=== PATIENT | female | born 1930 | race American Indian/Alaskan Native ===

== ENCOUNTER 2019-01-23 08:25 | Emergency (ER) | payer MEDICARE ==
[2019-01-23] MEDS ORDERED: NACL 0.9% 1000 ML 1,000 ML IV ONE ×2 (09:08→15:01)
[2019-01-23 09:45] LABS: Basophils % (Auto) 0.2 % (0.0-1.8); Eosinophils % (Auto) 0.3 % (0.0-4.3); Hematocrit 31.6 % (30.3-42.9); Hemoglobin 10.3 gm/dl (10.1-14.3); Lymphocytes # (Auto) 0.7 K/mm3 (1.2-5.4); Mean Corpuscular HGB Conc 33 % (30-34); Mean Corpuscular Volume 88 fl (79-97); Monocytes # (Auto) 0.5 K/mm3 (0.0-0.8); Monocytes % (Auto) 9.2 % (0.0-7.3); Platelet Count 235 K/mm3 (140-440); Red Cell Distribution Width 14.9 % (13.2-15.2)
[2019-01-23 09:55] LABS: INR 1.08 (0.87-1.13); Partial Thromboplastin Time 26.3 Sec. (24.2-36.6)
[2019-01-23 10:10] LABS: Alanine Aminotransferase 44 units/L (7-56); Albumin 3.7 g/dL (3.9-5); BUN/Creatinine Ratio 24; Bilirubin,Direct 0.4 mg/dL (0-0.2); Blood Urea Nitrogen 22 mg/dL (7-17); Hemolysis Index 3
--- NOTE | 2019-01-23 10:16 | Emergency Department Report ---
ED General Adult HPI - General Chief complaint: Abdominal Pain Stated complaint: DIARRHEA Time Seen by Provider: 01/23/19 09:07 Source: EMS Mode of arrival: Stretcher Limitations: No Limitations - History of Present Illness Initial comments: This is an 88-year-old female who recently moved to this area from [facility]. Her son states that she went to the doctor 2 weeks ago for routine care. He reports that she has been "going to the bathroom every 5 minutes". He cannot specifically describe to me what has been occurring in the bathroom. He states he thinks she is having "problems with her hemorrhoids". The nurse informs me the patient is having non-bloody diarrhea. The patient herself is able to answer simple questions. She is not able to provide self care I don't think though. She denies pain. He states his been no vomiting fever or chills. -: days(s) Associated Symptoms: denies other symptoms Treatments Prior to Arrival: none - Related Data Previous Rx's Medication Instructions Recorded Last Taken Type Sulfamethoxazole/Trimethoprim 1 each PO BID #10 tablet 01/23/19 Unknown Rx [Bactrim 400-80 mg Tablet] Allergies Allergy/AdvReac Type Severity Reaction Status Date / Time No Known Allergies Allergy Verified 01/23/19 08:56 ED Review of Systems ROS: Stated complaint: DIARRHEA Other details as noted in HPI Constitutional: denies: chills, fever Eyes: denies: eye pain, eye discharge, vision change ENT: denies: ear pain, throat pain Respiratory: denies: cough, shortness of breath, wheezing Cardiovascular: denies: chest pain, palpitations Endocrine: no symptoms reported Gastrointestinal: diarrhea. denies: abdominal pain, nausea Genitourinary: denies: urgency, dysuria, discharge Musculoskeletal: denies: back pain, joint swelling, arthralgia Skin: denies: rash, lesions Neurological: denies: headache, weakness, paresthesias Psychiatric: denies: anxiety, depression Hematological/Lymphatic: denies: easy bleeding, easy bruising ED Past Medical Hx - Past Medical History Previous Medical History?: Yes Hx Hypertension: Yes - Surgical History Past Surgical History?: No - Social History Smoking Status: Unknown if ever smoked Substance Use Type: None - Medications Home Medications: Home Medications Medication Instructions Recorded Confirmed Last Taken Type Sulfamethoxazole/Trimethoprim 1 each PO BID #10 tablet 01/23/19 Unknown Rx [Bactrim 400-80 mg Tablet] ED Physical Exam - General Limitations: No Limitations General appearance: alert, in no apparent distress - Head Head exam: Present: atraumatic, normocephalic - Eye Eye exam: Present: normal appearance. Absent: scleral icterus - ENT ENT exam: Present: mucous membranes moist - Neck Neck exam: Present: normal inspection - Respiratory Respiratory exam: Present: normal lung sounds bilaterally. Absent: respiratory distress - Cardiovascular Cardiovascular Exam: Present: regular rate, normal rhythm. Absent: systolic murmur, diastolic murmur, rubs, gallop - GI/Abdominal GI/Abdominal exam: Present: soft, normal bowel sounds. Absent: distended, tenderness, guarding, rebound, rigid - Extremities Exam Extremities exam: Present: normal inspection - Back Exam Back exam: Present: normal inspection - Neurological Exam Neurological exam: Present: alert, oriented X3, CN II-XII intact. Absent: motor sensory deficit - Psychiatric Psychiatric exam: Present: normal affect, normal mood - Skin Skin exam: Present: warm, dry, intact, normal color. Absent: rash ED Course Vital Signs 01/23/19 01/23/19 01/23/19 08:30 11:44 13:38 Temperature 98.8 F Pulse Rate 82 72 Respiratory 14 12 14 Rate Blood Pressure 148/56 Blood Pressure 144/58 142/68 [Left] O2 Sat by Pulse 98 100 98 Oximetry - Reevaluation(s) Reevaluation #1: Lost the urine specimen. We will culture it. I willthe patient on Bactrim. Patient will be referred for home health services. She will also be referred to a primary care provider. 01/23/19 15:13 ED Medical Decision Making - Lab Data Result diagrams: 01/23/19 09:32 01/23/19 09:32 Laboratory Results - last 24 hr 01/23/19 01/23/19 01/23/19 09:32 09:32 09:32 WBC 5.0 RBC 3.60 L Hgb 10.3 Hct 31.6 MCV 88 MCH 29 MCHC 33 RDW 14.9 Plt Count 235 Lymph % (Auto) 13.0 L [place] % (Auto) 9.2 H Eos % (Auto) 0.3 Baso % (Auto) 0.2 Lymph # 0.7 L [place] # 0.5 Eos # 0.0 Baso # 0.0 Seg Neutrophils % 77.3 H Seg Neutrophils # 3.9 PT 13.9 INR 1.08 APTT 26.3 Sodium 140 Potassium 3.5 L Chloride 101.9 Carbon Dioxide 25 Anion Gap 17 BUN 22 H Creatinine 0.9 Estimated GFR > 60 BUN/Creatinine Ratio 24 Glucose 101 H Calcium 9.0 Magnesium 1.50 L Total Bilirubin 1.30 H Direct Bilirubin 0.4 H Indirect Bilirubin 0.9 AST 35 ALT 44 Alkaline Phosphatase 49 NT-Pro-B Natriuret Pep 539.7 Total Protein 7.3 Albumin 3.7 L Albumin/Globulin Ratio 1.0 Laboratory Results - last 24 hr 01/23/19 01/23/19 01/23/19 09:32 09:32 09:32 WBC 5.0 RBC 3.60 L Hgb 10.3 Hct 31.6 MCV 88 MCH 29 MCHC 33 RDW 14.9 Plt Count 235 Lymph % (Auto) 13.0 L [place] % (Auto) 9.2 H Eos % (Auto) 0.3 Baso % (Auto) 0.2 Lymph # 0.7 L [place] # 0.5 Eos # 0.0 Baso # 0.0 Seg Neutrophils % 77.3 H Seg Neutrophils # 3.9 PT 13.9 INR 1.08 APTT 26.3 Sodium 140 Potassium 3.5 L Chloride 101.9 Carbon Dioxide 25 Anion Gap 17 BUN 22 H Creatinine 0.9 Estimated GFR > 60 BUN/Creatinine Ratio 24 Glucose 101 H Calcium 9.0 Magnesium 1.50 L Total Bilirubin 1.30 H Direct Bilirubin 0.4 H Indirect Bilirubin 0.9 AST 35 ALT 44 Alkaline Phosphatase 49 NT-Pro-B Natriuret Pep 539.7 Total Protein 7.3 Albumin 3.7 L Albumin/Globulin Ratio 1.0 Critical care attestation.: If time is entered above; I have spent that time in minutes in the direct care of this critically ill patient, excluding procedure time. ED Disposition Clinical Impression: Dehydration Diarrhea Qualifiers: Diarrhea type: unspecified type Qualified Code(s): R19.7 - Diarrhea, unspecified Disposition: DC-01 TO HOME OR SELFCARE Is pt being admited?: No Does the pt Need Aspirin: No Condition: Stable Instructions: Abdominal Pain (ED), Acute Diarrhea (ED) Additional Instructions: Increase fluids and advance as tolerated. Rx Bactrim. Return for worsening symptoms any acute change or problem. Home health evaluation and referral to primary care provider. Prescriptions: Sulfamethoxazole/Trimethoprim [Bactrim 400-80 mg Tablet] 1 each PO BID #10 tablet Referrals: ARMANDO BROOKS MD [Other] - 3-5 Days [facility] [Provider Group] - 3-5 Days Time of Disposition: 15:14
[2019-01-23] MEDS ORDERED: MAGNESIUM SULFATE 2GM/50ML 2 GM/50 ML BAG IV ONE (12:06)
[2019-01-23 13:39] VITALS: BP 142/68
[2019-01-23 17:05] LABS: Bilirubin,Urine Negative (Negative); Color,Urine Straw (Yellow)
[2019-01-23 17:06] LABS: Blood,Urine Negative (Negative); Protein,Urine <15 mg/dL mg/dL (Negative); Urobilinogen,Urine < 2.0 mg/dL (<2.0)
[2019-01-23 18:37] LABS: Bacteria,Urine 1+ /HPF (Negative)
== END 2019-01-23 17:35 | disposition home or self-care (01) ==
LOC: ED 08:25
DX: E86.0 Dehydration (principal); I10 Essential (primary) hypertension; Z79.899 Other long term (current) drug therapy
CPT/HCPCS: 36415; 80048; 80076; 81001; 83735; 83880; 85025; 85610; 85730; 87086; 96361; 96365; 99284; J3475; J7030

== ENCOUNTER 2021-05-15 23:13 | Emergency (ER) | payer MEDICARE ==
[~2021-05-15 23:13] MED LIST: DOPamine DRIP 800 MG/D5W 250ML PreMix IV ONE; EPINEPHrine 1 MG/10 ML SYRINGE ONE; SODIUM BICARB 8.4% 50 MEQ/50 ML SYRINGE IV ONE
[2021-05-15] MEDS ORDERED: NORepinephrine/NS 8 MG-250 ML 8 MG/250 ML INFUS..BTL IV ONE ×2 (23:27→23:42)
[2021-05-15] MEDS ORDERED: DOPamine 800 MG/D5W 250ML 800 MG/250 ML BAG IV ONE (23:41)
--- NOTE | 2021-05-15 23:49 | Emergency Department Report ---
HPI - General Time Seen by Provider: 05/15/21 23:39 - HPI HPI: Room 18 The patient is an 89-year-old female present with a chief complaint of cardiac arrest. Per EMS the patient was found moaning on the stretcher and EMS was called. EMS states upon arrival found the patient to be in PEA and ACLS protocols were initiated. The patient was intubated via Combitube and received 3 rounds of epi, 1 amp of sodium bicarb and 1 amp of D50 prior to arrival. EMS states the patient was in V. fib so she was defibrillated x1. Upon arrival to the ED patient remained in PEA and ACLS protocols were continued with eventual return of spontaneous circulation ED Past Medical Hx - Past Medical History Hx Hypertension: Yes Hx Dementia: Yes - Surgical History Past Surgical History?: No - Family History Family history: no significant - Social History Smoking Status: Unknown if ever smoked Substance Use Type: None - Medications Home Medications: Home Medications Medication Instructions Recorded Confirmed Last Taken Type Sulfamethoxazole/Trimethoprim 1 each PO BID #10 tablet 01/23/19 Unknown Rx [Bactrim 400-80 mg Tablet] ED Review of Systems ROS: Stated complaint: CARDIAC ARREST Other details as noted in HPI Comment: Unobtainable due to pts medical conditions Physical Exam - Physical Exam Physical Exam: GENERAL: The patient is well-developed well-nourished female lying on stretcher receiving chest compressions from EMS. [] HEENT: Normocephalic. Atraumatic. NECK: Trachea midline CHEST/LUNGS: Breath sounds equal bilaterally with bagging after intubation by myself HEART/CARDIOVASCULAR: Initially no heart sounds auscultated however after ROSC patient became regular. There is no tachycardia. There is no gallop rub or murmur. ABDOMEN: Abdomen is soft, nontender. Patient has normal bowel sounds. There is no abdominal distention. SKIN: There is no rash. There is no edema. There is no diaphoresis. NEURO: GCS 3 T MUSCULOSKELETAL: There is no evidence of acute injury. ED Course - Reevaluation(s) Reevaluation #1: 05/15/21 23:49 Patient arrested again this time going into asystole. ACLS protocols were continued with there was no return of spontaneous circulation. Patient - Intubation Time Out Performed: No Sedative: none Laryngoscope: fiberoptic video scope Size: 3 Assist Device Used: fiberoptic device ET Tube Size: 7 Tube Secured Depth (cm): 21 Tube Secured Location: lips Tube Placement Confirmation: visualized tube passing t, equal breath sounds bilat, no breath sounds over epi, confirmation by capnometr Patient Tolerated Procedure: no complications Intubation Complications: none ED Medical Decision Making - Differential Diagnosis Cardiac arrest Critical care attestation.: If time is entered above; I have spent that time in minutes in the direct care of this critically ill patient, excluding procedure time. ED Disposition Clinical Impression: Cardiac arrest Disposition: 20 Is pt being admited?: No Does the pt Need Aspirin: No Condition: Poor Time of Disposition: 23:50 (Patient )
[2021-05-16 01:34] VITALS: BP 87/57
== END 2021-05-16 05:39 ==
LOC: ED 23:13
DX: I46.9 Cardiac arrest, cause unspecified (principal); I10 Essential (primary) hypertension; F03.90 Unspecified dementia, unspecified severity, without behavioral disturbance, psychotic disturbance, mood disturbance, and anxiety
CPT/HCPCS: 31500; 92950; 99285; J0171; J1265; J2354; J3490